=== PATIENT | male | born 1990 | race Caucasian/White ===

== ENCOUNTER 2020-04-18 04:56 | Emergency (ER) | payer OTHER ==
[~2020-04-18] VITALS: Ht 177.8 cm; Wt 86.2 kg
--- NOTE | 2020-04-18 04:58 | NUR ---
PT [id number]. AMBULATORY WITH STERADTY GAIT. BIBSELF C/O L SIDED C/P X4 DAYS. VSS.
[2020-04-18] MEDS ORDERED: KETOROLAC TROMETHAMINE INJ 60 MG/2 ML VIAL IM ONE (05:22)
[2020-04-18] MEDS: KETOROLAC TROMETHAMINE INJ 60 MG/2 ML VIAL IM ONE (05:37)
--- NOTE | 2020-04-18 05:37 | NUR ---
Patient discharged to home in stable condition. Written and verbal after care instructions given. Patient verbalizes understanding of instruction.Pt ambulatory with a steady gait
[2020-04-18 05:40] VITALS: BP 114/69
== END 2020-04-18 05:41 | disposition home or self-care (01) ==
LOC: ER 05:12
DX: R07.89 Other chest pain (principal)
CPT/HCPCS: 71045; 93005; 96372; 99283; J1885